=== PATIENT | female | born 1960 | race Caucasian/White ===

== ENCOUNTER 2022-02-07 07:58 | Outpatient (CLI) | payer BC | END 2022-02-07 07:59 | disposition home or self-care (01) | LOC: CSHMAMMO 07:58 | PROVIDERS: ATTEND Family Medicine | DX: Z12.31 Encounter for screening mammogram for malignant neoplasm of breast (principal); Z98.890 Other specified postprocedural states; Z85.3 Personal history of malignant neoplasm of breast | CPT/HCPCS: 77063; 77067 ==

== ENCOUNTER 2023-02-13 12:55 | Outpatient (CLI) | payer BC | END 2023-02-13 12:56 | disposition home or self-care (01) | LOC: CSHMAMMO 12:55 | PROVIDERS: ATTEND Family Medicine | DX: Z12.31 Encounter for screening mammogram for malignant neoplasm of breast (principal); Z85.3 Personal history of malignant neoplasm of breast; Z98.890 Other specified postprocedural states | CPT/HCPCS: 77063; 77067 ==

== ENCOUNTER 2024-02-15 14:57 | Outpatient (CLI) | payer BC | END 2024-02-15 14:58 | disposition home or self-care (01) | LOC: CSHMAMMO 14:57 | PROVIDERS: ATTEND Family Medicine | DX: Z12.31 Encounter for screening mammogram for malignant neoplasm of breast (principal); Z85.3 Personal history of malignant neoplasm of breast; Z91.89 Other specified personal risk factors, not elsewhere classified | CPT/HCPCS: 77063; 77067 ==